=== PATIENT | male | born 1955 | race African-American/Black ===

== ENCOUNTER 2017-03-17 17:00 | Inpatient (IN) | payer MEDICAID ==
[~2017-03-17] VITALS: Ht 170.2 cm; Wt 98.4 kg
--- NOTE | ~2017-03-17 | HEMODYNAMI ---
PATIENT:YULISSA MCNAIR MEDICAL RECORD: [id number] : 59 LOCATION:D. D.2112 ADMISSION DATE: 03/17/17 Generatedon:03/18/201716:08 Patient name: YULISSA MCNAIR Patient #: [id number] SSN: : 1955 Date of study: 03/18/2017 Page: Of Hemodynamic Procedure Report Patient Data Patient Demographics Procedure consent was obtained First Name: YULISSA Gender: Male Last Name: TABBY : 1955 Middle Initial: D Age: 61 year(s) Patient #: [id number] Race: Black Additional ID: [id number] Contact details [address]: [address] [place] [address] State: [place] City: [place] Zip code: [address] Admission Admission Data Admission Date: 03/17/2017 Admission Time: 17:00 Room #: D.2112 Procedure Procedure Types Cath Procedure Diagnostic Procedure LHC LHC w/Coronaries w/Grafts PCI Procedure Coronary Stent Initial Miscellaneous Procedures Moderate Sedation up to 30 minutes Procedure Description Procedure Date Procedure Date: 03/18/2017 Procedure Start Time: 15:33 Procedure End Time: 16:07 Procedure Staff Name Function Wei Daily MD Performing Physician Rin Donohue RT Scrub Carroll Vickers RN Nurse Charly Aguirre RT Monitor Procedure Data Cath Procedure Fluoroscopy Diagnostic fluoroscopy Total fluoroscopy Time: 7.3 time: 7.3 min min Diagnostic fluoroscopy Total fluoroscopy dose: dose: 1218 mGy 1218 mGy Contrast Material Contrast Material Type Amount (ml) Isovue 300 158 Entry Location Entry Primary Successful Side Size Upsize Upsize Entry Closure Succes sful Closure Location (Fr) 1 (Fr) 2 (Fr) Remarks Device Remarks Femoral Right 5 Fr 6 Fr Exoseal artery Short Estimated blood loss: 10 ml Diagnostic catheters Device Type Used For End Catheter Placement Cordis 5Fr JL 4.0 Procedure Catheter (MP) Cordis 5Fr 3DRC Catheter Procedure (MP) Diagnostic Infinity 5Fr Procedure LCB catheter Cordis 5Fr Pigtail Procedure Catheter (MP) Diagnostic Infinity 5Fr Procedure AL 1 catheter Procedure Complications No complications Procedure Medications Medication Administration Route Dosage Oxygen NC 2 l/min Heparin Flush Bag added to field 2 bags (1000units/500ml NS) 0.9% NaCl I.V. 100 ml/hr Fentanyl I.V. 50 mcg Versed I.V. 1 mg Fentanyl I.V. 50 mcg Versed I.V. 1 mg Heparin Bolus I.V. 4000 units Integrilin (Bolus I.V. 9 ml 2mg/ml) Integrilin (Bolus wasted 1 ml 2mg/ml) Hemodynamics Rest Heart Rate: 78 (bpm) Pressure Samples Time Site Value (mmHg) Purpose Heart Use Rate(bpm) 15:35 AO 113/72(89) Snapshot 77 15:46 LV 115/-2,6 Snapshot 75 15:47 AO 116/64(85) Pullback 74 15:47 LV 115/-1,5 Pullback 74 15:58 AO 112/65(84) Snapshot 72 Gradients Valve Time Site 1 Site 2 Mean SEP/DFP Peak To Heart Use (mmHg) (sec/min) Peak Rate (mmHg) (bpm) Aortic 15:47 LV AO 0 8 0 74 115/-1,5 116/64(85) Calculations Valve P-P Mean Valve Index Valve Source Name Gradient Area Flow (cm2) Aortic 0 0 0 0 Snapshots Pre Cath Intra NCS Post Cath Vital Signs Time Heart Resp SPO2 etCO2 NIBP (mmHg) Rhythm Pain Sedation Rate (ipm) (%) (mmHg) Status Level (bpm) 15:26:41 78 20 95 15.8 182/106(152) NSR 0 (11) 10(A) , No pain 15:31:29 78 20 95 0 174/101(150) NSR 0 (11) 9(A) , No pain 15:36:10 76 16 95 0 137/80(111) NSR 0 (11) 9(A) , No pain 15:40:49 76 16 95 0 137/85(112) NSR 0 (11) 9(A) , No pain 15:45:27 74 17 94 0 131/85(108) NSR 0 (11) 9(A) , No pain 15:50:08 73 17 95 27.8 138/75(108) NSR 0 (11) 9(A) , No pain 15:54:47 73 17 94 29.3 141/85(110) NSR 0 (11) 9(A) , No pain 15:59:25 73 16 94 0 123/71(99) NSR 0 (11) 9(A) , No pain 16:04:02 74 17 95 24 136/76(107) NSR 0 (11) 9(A) , No pain Medications Time Medication Route Dose Verified Delivered Reason Notes Effectiveness by by 15:26:09 Oxygen NC 2 Wei Carroll Per physician l/min St. Benjamin Vickers RN, MD 15:26:20 Heparin Flush added 2 Wei Carroll used for Bag to bags [facility]. Benjamin Vickers RN procedure (1000units/500ml field NS) 15:26:31 0.9% NaCl I.V. 100 Wei Carroll Per physician ml/hr St. Benjamin Vickers RN, MD 15:30:50 Fentanyl I.V. 50 Wei Hodges for sedation mcg St. Benjamin Vickers RN, MD 15:30:59 Versed I.V. 1 mg Wei Pattersony for sedation St. Benjamin Vickers RN, MD 15:43:23 Fentanyl I.V. 50 Wei Pattersony for sedation mcg St. Benjamin Vickers RN, MD 15:43:28 Versed I.V. 1 mg Wei Pattersony for sedation St. Benjamin Vickers RN, MD 15:56:54 Heparin Bolus I.V. 4000 Wei Pattersony for units [facility]. Benjamin Vickers RN anticoagulation 15:57:09 Integrilin I.V. 9 ml Wei Hodges for (Bolus 2mg/ml) St. Benjamin Vickers RN anticoagulation 15:57:18 Integrilin wasted 1 ml Wei Pattersony for (Bolus 2mg/ml) [facility]. Benjamin Vickers RN anticoagulation Procedure Log Time Note 14:53:48 Time tracking: Regular hours 14:53:52 Carroll Vickers RN sent for patient. Start room use. 14:54:01 Plan of Care:Hemodynamics will remain stable., Cardiac rhythm will remain stable., Comfort level will be maintained., Respiratory function will remain adequate., Patient/ family verbilizes understanding of procedure., Procedure tolerated without complication., Recovers from procedure without complications.. 15:11:37 Patient received from PCU to CCL 1 Alert and oriented. Tansferred to table in Supine position. 15:11:39 Warm blankets applied, and iraida hugger turned on for patient comfort. 15:11:40 Correct patient and procedure confirmed by team. 15::42 Signed procedure consent form obtained from patient. 15:11:44 ECG and BP/O2 sat monitors applied to patient. 15:24:53 Vital chart was started 15:24:54 Baseline sample Acquired. 15:24:57 Rhythm: sinus rhythm 15:24:59 Full Disclosure recording started 15:25:04 H&P Date Dictated: 03/18/2017 Within 30 days and on chart.. 15:25:04 Pre-procedure instructions explained to patient. 15:25:05 Pre-op teaching completed and patient verbalized understanding. 15:25:07 Family in waiting room. 15:25:09 Patient NPO since Midnight. 15:25:10 Is the patient allergic to Iodine/contrast media? No. 15:25:25 Is patient on blood thinner?Yes 15:25:26 ACC The patient was administered the following blood thiners within the last 24 hours: ACCPlavix 15:25:28 Patient diabetic? Yes. 15:25:30 If diabetic: On Metformin? Unknown 15:25:32 Previous problem with sedation/anesthesia? No ? 15:25:33 Snore? Yes 15:25:34 Sleep apnea? No 15:25:35 Deviated septum? No 15:25:35 Opens mouth fully? Yes 15:25:36 Sticks out tongue? Yes 15:25:38 Airway obstruction? No ? 15:25:40 Dentures? No ? 15:25:43 Pre procedure: right dorsailis pedis pulse 1+ Palpable, but thready & weak; easily obliterated 15:25:44 Unable to palpate radial pulse. 15:25:45 Patient pain scale 0/10 ?. 15:25:50 IV patent on arrival in left forearm with 0.9% NaCl at [facility]. 15:25:52 Lab results completed and on chart. 15:25:55 Right groin area was prepped with chlora-prep and draped in sterile fashion 15:25:56 Alarms reviewed by R. N. 15:25:57 Sharps counted by scrub and verified by R.N. 15:25:58 --------ALL STOP TIME OUT------ 15::59 Final Timeout: patient, procedure, and site verified with staff and physician. All members of the team are in agreement. 15:26:02 Right groin site verified by team. 15:: Physical assessment completed. ASA score P 2 - A patient with mild systemic disease as per Wei Daily MD. 15::09 Oxygen 2 l/min NC was administered by Carroll Vickers RN; Per physician; 15::11 Sedation plan: IV Moderate Sedation Versed, Fentanyl 15:26:20 Heparin Flush Bag (1000units/500ml NS) 2 bags added to field was administered by Carroll Vickers RN; used for procedure; 15::31 0.9% NaCl 100 ml/hr I.V. was administered by Carroll Vickers RN; Per physician; 15:30:23 Use device set Femoral Dx 15:30:27 Tegaderm 4 x 4 opened to sterile field. 15:30:28 Acist Hand Control opened to sterile field. 15:30:28 Acist Manifold opened to sterile field. 15:30:29 Acist Syringe opened to sterile field. 15:30:30 Bag Decanter opened to sterile field. 15:30:30 Medline Cath Pack opened to sterile field. 15:30:30 Terumo 5Fr [place] Sheath opened to sterile field. 15:30:31 St Yg 260cm J .035 wire opened to sterile field. 15:30:33 Diagnostic Infinity 5Fr Multipack catheter opened to sterile field. 15:30:50 Fentanyl 50 mcg I.V. was administered by Carroll Vickers RN; for sedation; 15::59 Versed 1 mg I.V. was administered by Carroll Vickers RN; for sedation; 15:33:07 Procedure started. 15:33:14 Local anesthetic to right femoral artery with Lidocaine 2% by Wei Daily MD.INITIAL ACCESS ONLY 15:35:00 A 5 Fr sheath was inserted into the Right Femoral artery 15:35:13 A Cordis 5Fr JL 4.0 Catheter (MP) was advanced over the wire and used for Procedure. 15:35:19 LCA angiography performed. 15:36:31 Catheter removed. 15:36:36 A Cordis 5Fr 3DRC Catheter (MP) was advanced over the wire and used for Procedure. 15:36:38 Zero performed for pressure channel P1 15:38:24 RCA angiography performed. 15:40:38 SINGH to LAD angiography performed. 15:40:39 SINGH is a skip to DIAG as well. 15:41:06 SVG to Circ angiography performed. 15:41:23 Catheter removed. 15:41:33 A Diagnostic Infinity 5Fr LCB catheter was advanced over the wire and used for Procedure. 15:43:23 Fentanyl 50 mcg I.V. was administered by Carroll Vickers RN; for sedation; 15:43:28 Versed 1 mg I.V. was administered by Carroll Vickers RN; for sedation; 15:45:58 Catheter removed. unable to cannulate vessel. 15:46:31 A Cordis 5Fr Pigtail Catheter (MP) was advanced over the wire and used for Procedure. 15:47:20 LV hemodynamics recorded. 15:49:21 Aortic Root visualized 15:49:24 Injector settings: Ml/sec: 15, Volume: 30, 15:49:31 Catheter removed. 15:50:59 A Diagnostic Infinity 5Fr AL 1 catheter was advanced over the wire and used for Procedure. 15:52:25 SVG to OM angiography performed. 15:52:34 Catheter removed. 15:53:35 Terumo 6Fr [place] Sheath opened to sterile field. 15:53:36 Perfectore BasixCompak Inflation Kit opened to sterile field. 15:53:36 Scott Whisper J 300cm 0.014 guide wire opened to sterile field. 15:53:36 Ummitechtronic Launcher 6Fr HS I guide catheter opened to sterile field. 15:55:08 Sheath upsized to a 6 Fr Short. 15:55:18 Study PCI Site: [place] dRCA has 80% stenosis. 15:55:21 ACC Pre-intervention TANYA Flow is 3. 15:55:27 6 Fr HS 1 guide catheter was inserted over the wire 15:56:54 Heparin Bolus 4000 units I.V. was administered by Carroll Vickers RN; for anticoagulation; 15:57:09 Integrilin (Bolus 2mg/ml) 9 ml I.V. was administered by Carroll Vickers RN; for anticoagulation; 15:57:18 Integrilin (Bolus 2mg/ml) 1 ml wasted was administered by Carroll Vickers RN; for anticoagulation; 15:57:18 Whisper wire advanced. 15:59:22 Wire advanced across lesion. 15:59:59 Inflation Number: 1 A Medtronic Integrity 3.5 X 15 stent was prepped and advanced across the Dist RCA. The stent was deployed at 14 SONIA for 0:45 (min:sec). 16:00:16 ACC Post-intervention TANYA Flow is 3. 16:00:18 Stent catheter was removed intact over wire. 16:00:18 Wire removed. 16:00:19 Guide catheter removed. 16:00:43 Sheath removed intact; hemostasis achieved with Exoseal to the Right Femoral artery. 16:00:45 Procedure ended.(Physican Out) 16:01:00 Cordis 6Fr Exoseal opened to sterile field. 16:01:28 Fluoroscopy time 07.30 minutes. 16:01:32 Fluoroscopy dose: 1218 mGy 16:01:32 Flurop Dose total: 1218 16:01:37 Contrast amount:Isovue 300 158ml. 16:01:39 Sharps counted by scrub and verified by R.N. 16:01:41 Insertion/operative site no bleeding no hematoma. 16:01:43 Post Procedure Pulses reassessed and unchanged 16:01:46 Post-procedure physical assessment completed. ASA score P 2 - A patient with mild systemic disease as per Wei Daily MD. 16:01:49 Post procedure rhythm: unchanged. 16:01:52 Estimated blood loss: 10 ml 16:01:53 Post procedure instruction explained to patient.Patient verbalizes understanding. 16:01:54 Patient needs reinforcement of post procedure teaching. 16:02:10 Procedure type changed to Cath procedure, Diagnostic procedure, LHC, LHC w/Coronaries w/Grafts, PCI procedure, Coronary Stent Initial, Miscellaneous Procedures, Moderate Sedation up to 30 minutes 16:02:13 Procedure and supply charges have been captured, reviewed, submitted and are correct. 16:02:16 Procedure Complication : No complications 16:03:37 Cook 18G 7cm Percutaneous Entry needle opened to sterile field. 16:07:13 Vital chart was stopped 16:07:14 See physician's report for complete and final results. 16:07:18 Report given to PCU. 16:07:23 Patient transfered to PCU with Bed. 16:07:25 Procedure ended. 16:07:25 Full Disclosure recording stopped 16:08:00 End room use (Document Last) Intervention Summary Intervention Notes Time ActionType Lesion and Equipment Action# Pressure Duration Attributes Used 15:59:59 Place stent Dist RCA Medtronic 1 14 00:45 Integrity 3.5 X 15 stent Device Usage Item Name Manufacture Quantity Catalog Hospital Part Current Minimal Lot# / Number Charge Number Stock Stock Serial# Code Tegadenorberto 4 x 3M 1 [id number] 737867 400373 5 4 Acist Hand Acist 1 43257 602173 691028 923894 5 Control Medical Systems Inc Acist Acist 1 36196 004322 057261 402249 5 Manifold Medical Systems Inc Acist Acist 1 83539 040488 129371 541380 20 Syringe Medical Systems Inc Bag Decanter Microtek 1 2002S 506947 64943 598022 5 Medical Inc. Medline Cath Cardinal 1 [id number] 668249 31707 284629 5 Pack Health Terumo 5Fr Terumo 1 [id number] 028828 957916 738616 [address] Yg 1 021130 640167 789343 191332 30 260cm J .035 wire Diagnostic Cardinal 1 [id number] 518618 25504 548151 30 Infinity 5Fr Health Multipack catheter Cordis 5Fr Cardinal 1 895292 5 JL 4.0 Health Catheter (MP) Cordis 5Fr Cardinal 1 038613 5 3DRC Health Catheter (MP) Diagnostic Cardinal 1 [id number] 030786 189413 769943 5 Infinity 5Fr Health LCB catheter Cordis 5Fr Cardinal 1 211491 5 Pigtail Health Catheter (MP) Diagnostic Cardinal 1 [id number] 676737 733137 760921 15 Infinity 5Fr Health AL 1 catheter Terumo 6Fr Terumo 1 EEK421 359862 128822 600018 40 [place] Sheath Merit Merit 1 IK6979 568097 779468 223991 15 BasixCompak Medical Inflation Kit Scott Scott 1 [id number] 661434 236260 448969 5 Whisper J Vascular 300cm 0.014 guide wire Medtronic Medtronic 1 [id number] 376411 64425 432458 1 Launcher 6Fr HS I guide catheter Medtronic Medtronic 1 [id number] 621017 268261 0 [id number] Integrity 3.5 X 15 stent Cordis 6Fr Cardinal 1 EX600 942074 131448 285556 10 On[employer] 18G 7cm Win the Planet [facility] 1 [id number] 750046 11411 512758 5 Percutaneous Entry needle Signature Audit [place] Stage Time Signature Unsigned Intra-Procedure 03/18/2017 Charly Aguirre 4:08:17 PM RT(R) Signatures Monitor : Charly Aguirre RT Signature : Date : Time : [place] [id number] [facility] [place] [address]
--- NOTE | 2017-03-17 17:00 | NUR ---
PT RECEIVED TO ROOM 2111 VIA STRETCHER. ORIENTED PT TO ROOM AND CALL LIGHT. PT ASSESSED AT THIS TIME, DENIES ANY CHEST PAIN. RESP EVEN AND UNLABORED, 20G IV NOTED TO RT WRIST. PT A/O X4, DENIES ANY NEEDS AT THIS TIME. WILL START PLAN OF CARE.
[2017-03-17 17:55] VITALS: BP 173/95; BMI 34.0
[2017-03-17] MEDS ORDERED: NORVASC5 MG PO (18:03)
[2017-03-17] MEDS ORDERED: ASPIRIN325 MG PO (18:04)
[2017-03-17] MEDS ORDERED: BAYER CHEWABLE81 MG PO (18:04)
[2017-03-17] MEDS ORDERED: LIPITOR40 MG PO (18:05)
[2017-03-17] MEDS ORDERED: PLAVIX75 MG PO (18:05)
[2017-03-17] MEDS ORDERED: COREG25 MG PO (18:05)
[2017-03-17] MEDS ORDERED: CYCLOBENZAPRINE10 MG PO (18:06)
[2017-03-17] MEDS ORDERED: GABAPENTIN100 MG PO (18:06)
[2017-03-17] MEDS ORDERED: GLUCOTROL 5 MG T5 MG PO (18:07)
[2017-03-17] MEDS ORDERED: HYDRALAZINE HCL50 MG PO (18:08)
[2017-03-17] MEDS ORDERED: GLIMEPIRIDE1 MG PO (18:09)
[2017-03-17] MEDS ORDERED: METOLAZONE5 MG PO (18:11)
[2017-03-17] MEDS ORDERED: JANTOVEN7.5 MG PO ×2 (18:12→18:14)
[2017-03-17] MEDS ORDERED: K-DUR20 MEQ PO (18:16)
[2017-03-17] MEDS ORDERED: TORSEMIDE20 MG PO (18:17)
[2017-03-17 18:21] LABS: BASOPHILS 0.1 % (0-2); EOSINOPHILS 2.3 % (0-7); HEMATOCRIT 44.1 % (42.0-54.0); HEMOGLOBIN 14.6 g/dL (13.5-17.5); IMMATURE GRANULOCYTES 0.1 % (0-5); LYMPHOCYTES 17.6 % (15-50); MCHC 33.1 g/dL (31.0-37.0); MCV 81.7 fL (80.0-100.0); MEAN PLATELET VOLUME 9.3 fL (7.4-10.4); NEUTROPHILS 70.9 % (40-80); PLATELET COUNT 195 10x3/uL (130-400); RDW 15.7 % (11.5-14.5)
--- NOTE | 2017-03-17 19:28 | NUR ---
PT IN BED WITH HOB UP FOR COMFORT. WATCHING TV. FAMILY AT BEDSIDE. ALERT & ORIENTED. NO O2. RIGHT WRIST SL. TELEMETRY. URINAL. SOFT SPOKEN. LEFT SIDE WEAKNESS. BED IN LOWEST POSITION AND CALL LIGHT WITHIN REACH.
[2017-03-17 19:53] LABS: ALBUMIN 3.2 g/dL (3.4-5.0); ALKALINE PHOSPHATASE 182 U/L (46-116); ALT (SGPT) 36 U/L (10-68); BILIRUBIN - DIRECT 0.16 mg/dL (0.00-0.30); BILIRUBIN - INDIRECT 0.24 mg/dL (0.00-1.00); CALC OSMOLALITY 304 mosm/kg (275-300); CALCIUM 9.7 mg/dL (8.5-10.1); CARBON DIOXIDE 34.3 mmol/L (21.0-32.0); CHLORIDE - SERUM 92 mmol/L (98-107); CREATINE KINASE 187 UL (21-232); CREATININE - SERUM 3.2 mg/dL (0.6-1.3); GLUCOSE 291 mg/dL (74-106); MAGNESIUM - SERUM 1.8 mg/dL (1.8-2.4); POTASSIUM - SERUM 3.1 mmol/L (3.5-5.1); PROTEIN - SERUM 7.8 g/dL (6.4-8.2); SODIUM 137 mmol/L (136-145); TROPONIN-I 0.049 ng/mL (0.000-0.060); UREA NITROGEN 68 mg/dL (7-18); eGFR NON AFRICAN AMERICAN 21 mL/min (90-120)
[2017-03-17 21:02] VITALS: BP 139/85
--- NOTE | 2017-03-17 23:53 | NUR ---
EKG DONE ORDERED. PLACED IN CHART.
[2017-03-18 00:20] LABS: CKMB 1.7 U/L (0.0-3.6); CREATINE KINASE 176 UL (21-232); TROPONIN-I 0.057 ng/mL (0.000-0.060)
[2017-03-18 00:30] VITALS: BP 163/74
--- NOTE | 2017-03-18 05:25 | NUR ---
LEAD FORMER REPORTED TO ME PT'S BP IS 198/88 AND IS FEELING NAUSEATED. PAGED PROFESSIONAL DRIVER.
--- NOTE | 2017-03-18 05:32 | NUR ---
ZOFRAN GIVEN FOR PT'S NAUSEA.
--- NOTE | 2017-03-18 05:39 | NUR ---
RIGHT WRIST SL INFILTRATED. RIGHT FA 20 GAUGE IV ON X1 ATTEMPT BY JEAN-PAUL LOW.
[2017-03-18 06:03] VITALS: BP 192/88
--- NOTE | 2017-03-18 06:05 | NUR ---
HAVE NOT GOTTEN A CALL FROM MEDICAL COLLECTIONS SPECIALIST.
[2017-03-18 07:00] LABS: INR 1.27 (0.85-1.17); PROTIME 15.8 SECONDS (11.6-15.0)
[2017-03-18 07:23] LABS: CALC OSMOLALITY 300 mosm/kg (275-300); CALCIUM 9.9 mg/dL (8.5-10.1); CARBON DIOXIDE 31.1 mmol/L (21.0-32.0); CHLORIDE - SERUM 93 mmol/L (98-107); CKMB 1.5 U/L (0.0-3.6); CREATINE KINASE 180 UL (21-232); CREATININE - SERUM 3.2 mg/dL (0.6-1.3); SODIUM 132 mmol/L (136-145); TROPONIN-I 0.051 ng/mL (0.000-0.060); UREA NITROGEN 63 mg/dL (7-18); eGFR NON AFRICAN AMERICAN 21 mL/min (90-120)
[2017-03-18 07:45] LABS: GLUCOSE 427 mg/dL (74-106)
[2017-03-18 07:51] LABS: BASOPHILS 0 % (0-2); EOSINOPHILS 1.8 % (0-7); IMMATURE GRANULOCYTES 0.3 % (0-5); LYMPHOCYTES 15.2 % (15-50); MCH 27.1 pg (26.0-34.0); MCHC 33.3 g/dL (31.0-37.0); MCV 81.2 fL (80.0-100.0); MEAN PLATELET VOLUME 9.6 fL (7.4-10.4); MONOCYTES 10.2 % (2-11); NEUTROPHILS 72.5 % (40-80); PLATELET COUNT 194 10x3/uL (130-400); RBC 5.17 10x6/uL (4.20-6.10); RDW 15.4 % (11.5-14.5); WBC 6.6 10x3/uL (4.8-10.8)
[2017-03-18 08:07] VITALS: BP 194/97
[2017-03-18 09:48] VITALS: Ht 170.2 cm; Wt 98.4 kg
--- NOTE | 2017-03-18 13:05 | CN ---
PATIENT NAME:YULISSA MCNAIR MEDICAL RECORD: [id number] : 59 LOCATION:[facility].2 ADMIT DATE: 03/17/17 ACCOUNT: [id number] CONSULTING PHYSICIAN: FLETCHER WELSH MD REFERRING PHYSICIAN: GUADALUPE SALAMANCA MD DATE OF CONSULTATION: 03/18/2017 HISTORY OF PRESENT ILLNESS: A 61-year-old gentleman with no known history of coronary artery disease with a history of chronic renal insufficiency, history of hypertension, reports about 2-week history of intermittent chest tightness with exertion progressing for probably roughly over the past 2 weeks. He also had some fluid type symptomatology, orthopnea, PND consistent with volume overload, multiple risk factors for volume overload. We are asked to see him concerning his cardiovascular status. PAST MEDICAL HISTORY: Includes: 1. History of hypertension. 2. Chronic renal insufficiency. 3. Diabetes mellitus. 4. Dyslipidemia. MEDICATIONS: Include Amaryl 1 mg p.o. daily, glipizide 5 b.i.d., furosemide 40 b.i.d., metolazone 5 daily, gabapentin 100 t.i.d., aspirin 81 daily, hydralazine 50 t.i.d., Coreg 25 b.i.d., atorvastatin 40 daily, amlodipine 5 daily, and Plavix 75 daily. ALLERGIES: None known. SOCIAL HISTORY: He lives in [place]. He is a nonsmoker. He is able to take care of his ADLs. REVIEW OF SYSTEMS: The patient reports easy bruising but reports no swollen glands. The patient reports no fever, no night sweats, no significant weight gain, no significant weight loss. No significant exercise tolerance. The patient reports no dry eyes, no irritation, no vision change. Patient reports no difficulty hearing and no ear pain. Patient reports no frequent nose bleeds or nose and sinus problems. Patient reports on arm pain on exertion. No shortness of breath while lying down. No history of heart murmur. Patient reports no cough, no wheezing or coughing up blood. Patient reports no abdominal pain, no vomiting. Normal appetite. No diarrhea and not vomiting blood. No nausea and no constipation. Patient reports no incontinence. No difficulty urinating. No hematuria. No increased frequency. Patient reports no muscle aches. No weakness, no arthralgias, no back pain. No swelling of the extremities. Patient reports no abnormal mole, no jaundice, no rashes. Reports no loss of consciousness. No weakness and no numbness. No seizures, dizziness, or headaches. The patient reports no depression, no sleep disturbance, feeling safe in a relationship and no alcohol abuse. Patient reports on fatigue. Reports no runny nose or sinus pressure. No itching, no hives, and no frequent sneezing. PHYSICAL EXAMINATION: GENERAL: Pleasant gentleman in no acute distress, somewhat poor historian. VITAL SIGNS: Blood pressure 198/88 and pulse 80 and regular. HEENT: Normocephalic, atraumatic. NECK: No JVD or bruit. CONSULT REPORT [id number] YULISSA MCNAIR HEART: Regular. S4 gallop is noted. II/ systolic ejection murmur. LUNGS: Diminished breath sounds. ABDOMEN: Soft, nontender. EXTREMITIES: Pulse 2+. There is 1+ edema. NEUROLOGIC: Grossly intact. DIAGNOSTIC DATA: ECG consistent with LVH. IMPRESSION: Progressive angina, renal insufficiency, and diabetes mellitus. PLAN: For diagnostic angiography, intervention based on the above. TRANSINT:[id number] Voice Confirmation ID: [id number] DOCUMENT ID: [id number] FLETCHER WELSH MD at 1305 CC: [id number] DICTATION DATE: 03/18/17740 ARMAMENT MECHANIC: 03/18/17 1026 ADM IN [place] [id number] [place] [id number]
[2017-03-18 13:38] VITALS: BP 180/70
[2017-03-18 13:39] LABS: ANION GAP 11.3 mmol/L (8-16); CALCIUM 9.9 mg/dL (8.5-10.1); POTASSIUM - SERUM 3.3 mmol/L (3.5-5.1)
--- NOTE | 2017-03-18 16:30 | NUR ---
ARRIVE BACK TO ROOM VIA BED FROM DATA CENTER MANAGER. DROWSY, AROUSES EASILY WHEN SPOKEN TO. STENT TO RCA. RT GROIN DRESSING CLEAN DRY INTACT. PULSES PALPABLE BILATERALLY. FREE FROM BLEEDING. NO HEMATOMA. BP-144/67, P-72bpm SINUS RHTHYM ON TELEMETRY, O2-100% 2L NC. REMAIN FLAT FOR 4HOURS. BED LOCKED AND LOW. CALL LIGHT IN REACH. TWO SIDERAILS UP.
[2017-03-18 16:37] VITALS: BP 144/67
--- NOTE | 2017-03-18 19:30 | NUR ---
ASSESSED PTS CATH ACCESS IN R GROIN. DRSG INTACT. SCANT AMOUNT DRIED BLOOD. NO HEMATOMA FORMATION NOTED. PT STATES THERE IS NO PAIN OR DISCOMFORT. WILL CTM.
--- NOTE | 2017-03-18 19:57 | NUR ---
PT IN BED RESTING QUIETLY. BREATHING EVEN AND UNLABORED. BED RAILS UP X2. BED IN LOW POSITION, CALL LIGHT WITHIN REACH.
[2017-03-18 21:53] VITALS: BP 172/90
--- NOTE | 2017-03-18 23:30 | NUR ---
ASSESSED PTS RT GROIN CATHETER ACCESS. DRSG INTACT. SAME AMOUNT OF SCANT DRIED BLOOD NOTED. NO HEMATOMA FORMATION. PT STATES THERE IS NOT ANY PAIN OR DISCOMFORT. WILL CTM.
[2017-03-19] VITALS (8 sets, daily range): BP systolic 90–198; BP diastolic 47–101
--- NOTE | 2017-03-19 01:19 | NUR ---
PTS BP 198/107. C/O NAUSEA. PAGED SILO ERECTOR PHYSICIAN. AWAITING RESPONSE.
--- NOTE | 2017-03-19 01:23 | NUR ---
RCVD CALL BACK FROM SIDNEY MOORE. SHE STATED TO ORDER CLONIDINE 0.1MG Q4HRS PRN FOR BP. AND PO ZOFRAN 4 MG Q6HRS PRN.
[2017-03-19 05:06] LABS: BASOPHILS 0 % (0-2); EOSINOPHILS 0.7 % (0-7); HEMATOCRIT 45.2 % (42.0-54.0); HEMOGLOBIN 14.8 g/dL (13.5-17.5); IMMATURE GRANULOCYTES 0.3 % (0-5); LYMPHOCYTES 10.4 % (15-50); MCH 27.1 pg (26.0-34.0); MCHC 32.7 g/dL (31.0-37.0); MCV 82.6 fL (80.0-100.0); MEAN PLATELET VOLUME 9.3 fL (7.4-10.4); MONOCYTES 9.3 % (2-11); NEUTROPHILS 79.3 % (40-80); PLATELET COUNT 213 10x3/uL (130-400); RBC 5.47 10x6/uL (4.20-6.10); RDW 15.7 % (11.5-14.5); WBC 7.7 10x3/uL (4.8-10.8)
[2017-03-19 05:17] LABS: INR 1.19 (0.85-1.17)
[2017-03-19 05:51] LABS: ALBUMIN 2.8 g/dL (3.4-5.0); ANION GAP 11.3 mmol/L (8-16); BILIRUBIN - TOTAL 0.5 mg/dL (0.2-1.3); CALCIUM 9.8 mg/dL (8.5-10.1); CARBON DIOXIDE 30.8 mmol/L (21.0-32.0); CREATININE - SERUM 2.6 mg/dL (0.6-1.3); MAGNESIUM - SERUM 2.1 mg/dL (1.8-2.4); PHOSPHOROUS 2.7 mg/dL (2.5-4.9); POTASSIUM - SERUM 3.1 mmol/L (3.5-5.1)
[2017-03-19 05:55] LABS: TROPONIN-I 0.111 ng/mL (0.000-0.060)
--- NOTE | 2017-03-19 06:12 | NUR ---
RCVD CALL FROM LAB ABOUT TROPONIN BEING 0.111. CARDIOLOGY ALREADY CONSULTED. WILL PASS ON IN REPORT. POTASSIUM LEVEL ALSO 3.1. PT ON ELECTROLYTE PROTOCOL. GIVING 40 MEQ PO KCL. PUT PT ON NPO ANTICIPATING POSSIBLE CATH.
--- NOTE | 2017-03-19 11:00 | NUR ---
ALERT AND ORIENTED X4. ASSIST TO RESTROOM AND BACK TO BED. INITIATE NS + 20KCL @ 75mL/HR THROUGH RT FA IV ORDERED. NOTIFY TERESA RENAL CLINICAL SCIENCE CONSULTANT AND OF TROPONIN ELEVATION FROM 0.[address] ORDERED FOR NAUSEA AND VOMITING. DENIES ANY NEEDS. BED LOCKED AND LOW. CALL LIGHT IN REACH. CONTINUE TO MONITOR AND TREAT HYPERTENSION. TWO SIDERAILS UP. SINUS RHTHYM 70bpm ON TELEMETRY.
--- NOTE | 2017-03-19 19:17 | NUR ---
PT UP TO RESTROOM X1 ASSIST. PT WEAK ON LEFT SIDE. PT AMBULATE TO RESTROOM WITH MINIMAL ASSIST. PT REPOSITIONED IN BED. CALL LIGHT IN REACH. BED LOW. PT DENIES ANY NEEDS. NO S/S OF DISTRESS. WILL CPOC
--- NOTE | 2017-03-20 01:40 | NUR ---
PT ASLEEP LAYING ON RIGHT SIDE. NS WITH 20 MEQ POTASSIUM INFUSING TO RIGHT ARM AT 75. PT HAS NO S/S OF DISTRESS. BED LOW AND CALL LIGHT IN REACH. WILL CPOC
[2017-03-20 02:45] VITALS: BP 190/102
[2017-03-20 04:42] VITALS: BP 192/100
--- NOTE | 2017-03-20 05:56 | NUR ---
PT RESTING IN BED. LAB IN ROOM DRAWING BLOOD. PT HAS NS 20MEQ POTASSIUM INFUSING TO RIGHT FOREARM. FSBS IS 274. WILL COVER BLOOD SUGAR AND GIVE PT A SNACK. PT DENIES ANY NEEDS. NO S/S OF DISTRESS. WILL CPOC
[2017-03-20 06:32] LABS: BASOPHILS 0 % (0-2); EOSINOPHILS 0.8 % (0-7); HEMOGLOBIN 14.3 g/dL (13.5-17.5); IMMATURE GRANULOCYTES 0.2 % (0-5); LYMPHOCYTES 11.5 % (15-50); MCH 27.3 pg (26.0-34.0); MCHC 33.3 g/dL (31.0-37.0); MCV 82.1 fL (80.0-100.0); MEAN PLATELET VOLUME 9.2 fL (7.4-10.4); MONOCYTES 6.3 % (2-11); NEUTROPHILS 81.2 % (40-80); PLATELET COUNT 203 10x3/uL (130-400); RBC 5.24 10x6/uL (4.20-6.10); RDW 15.9 % (11.5-14.5); WBC 8.5 10x3/uL (4.8-10.8)
[2017-03-20 06:56] LABS: ANION GAP 14.5 mmol/L (8-16); CARBON DIOXIDE 26.6 mmol/L (21.0-32.0); CREATININE - SERUM 3.2 mg/dL (0.6-1.3)
[2017-03-20 07:00] LABS: POTASSIUM - SERUM 4.1 mmol/L (3.5-5.1)
--- NOTE | 2017-03-20 07:37 | NUR ---
AM ROUNDING DONE WITH PATIENT SITTING AT 30 DEGREE WITH HOB. WAS GIVEN PHENERGAN EARILER IN SHIFT FOR NAUSEA, DENIES NEEDS AT PRESENT TIME. ON HEART MONITOR SHOWING SR, HR 91. ON ROOM AIR. RIGHT INNER FA SEEN WITH 1/2 NS W 20 K INFUSING AT 75 CC/HR WITHOUT PROBLEMS. USES URINAL TO VOID. PATIENT REPORTS THAT ENTIRE LEFT SIDE IS WEAK FROM PREVIOUS HISTORY OF STROKE. ENCOURAGED PATIENT TO USE CALL LIGHT FOR ALL NEEDS. WILL CONTINUE TO MONITOR.
--- NOTE | 2017-03-20 07:39 | NUR ---
RIGHT GROIN SEEN WITH OPSITE AND CLEAN 2 X 2 DRESSING. PPP AND STRONG
--- NOTE | 2017-03-20 09:26 | NUR ---
0857-COMPLAINTS OF NAUSEA STILL. ZOFRAN 4 MG GIVEN SLOW IVP ORDERED.
[2017-03-20 09:45] VITALS: BP 144/88
[2017-03-20 12:30] VITALS: BP 167/88
--- NOTE | 2017-03-20 13:39 | NUR ---
RESTING WITH EYES CLOSED, RESP ARE EVEN AND NON LABORED. WILL CONTINUE TO MONITOR.
--- NOTE | 2017-03-20 14:31 | NUR ---
CALLED DR SALAMANCA OFFICE AND SPOKE WITH FRANCOIS R/T CLARIFICATION OF COUMADIN DOSE FOR TODAY. SHE STATES THAT SHE WILL HAVE TO HAVE THE NURSE PRACTINONER TO CALL ME BACK WITH CLARIFICATION.
--- NOTE | 2017-03-20 14:50 | NUR ---
ELVIN MACIEL APN TO CALL BACK AND STATES THAT ITS OKAY TO GIVE WHAT IS ORDERED.
[2017-03-20 16:51] VITALS: BP 140/76
--- NOTE | 2017-03-20 19:19 | NUR ---
PT ASLEEP, RESP EVEN AND UNLABORED. BEDSIDE REPORT GIVEN AT DOOR. NAME AND DATE PLACED ON BOARD. PT HAS NO S/S OF DISTRESS. BED LOW AND CALL LIGHT IN REACH. WILL CPOC
[2017-03-20 20:00] VITALS: BP 120/65
--- NOTE | 2017-03-20 21:37 | NUR ---
PT IN BED. HOB IS 40. DENIES ANY NAUSEA AT THIS TIME. PT HAS A FSBS OF 271 6 UNITS GIVEN. PT GIVEN A SNACK. DENIES ANY NEEDS. NO S/S OF DISTRESS. WILL CPOC
[2017-03-21] VITALS: BP 140/70
[2017-03-21 04:00] VITALS: BP 152/74
--- NOTE | 2017-03-21 04:49 | NUR ---
PT UP TO RESTROOM X1 ASSIST OUT OF BED. WALKING TO BATHROOM STANDBYE ASSIST. PT PULLED LIGHT WHEN DONE. PT BACK IN BED. 1/2NS WITH 20 MEQ INFUSING AT 30 TO RIGHT FOREARM. PT DENIES ANY NEEDS. NO S/S OF DISTRESS. WILL CPOC
[2017-03-21 05:31] LABS: BASOPHILS 0 % (0-2); EOSINOPHILS 1.3 % (0-7); HEMATOCRIT 42.6 % (42.0-54.0); HEMOGLOBIN 13.9 g/dL (13.5-17.5); IMMATURE GRANULOCYTES 0.3 % (0-5); LYMPHOCYTES 13.7 % (15-50); MCHC 32.6 g/dL (31.0-37.0); MCV 82.7 fL (80.0-100.0); MEAN PLATELET VOLUME 9.2 fL (7.4-10.4); MONOCYTES 9.6 % (2-11); NEUTROPHILS 75.1 % (40-80); PLATELET COUNT 195 10x3/uL (130-400); RBC 5.15 10x6/uL (4.20-6.10); RDW 15.8 % (11.5-14.5)
[2017-03-21 05:34] LABS: INR 1.43 (0.85-1.17); PROTIME 17.3 SECONDS (11.6-15.0)
[2017-03-21 05:40] LABS: WBC 6.3 10x3/uL (4.8-10.8)
[2017-03-21 05:46] LABS: ALBUMIN 2.7 g/dL (3.4-5.0); ANION GAP 14.7 mmol/L (8-16); BILIRUBIN - DIRECT 0.11 mg/dL (0.00-0.30); BILIRUBIN - INDIRECT 0.22 mg/dL (0.00-1.00); BILIRUBIN - TOTAL 0.33 mg/dL (0.2-1.3); CALCIUM 8.9 mg/dL (8.5-10.1); CARBON DIOXIDE 24.6 mmol/L (21.0-32.0); CREATININE - SERUM 3.7 mg/dL (0.6-1.3); POTASSIUM - SERUM 3.3 mmol/L (3.5-5.1); PROTEIN - SERUM 7.3 g/dL (6.4-8.2)
--- NOTE | 2017-03-21 07:13 | NUR ---
PT POTASSIUM IS 3.3 WITH AM LABS. 40 MEQ OF POTASSIUM GIVEN .WILL CHECK IN 4 HOURS ORDERED.
--- NOTE | 2017-03-21 07:26 | NUR ---
ROUNDING DONE WITH PATIENT ON EP, K+ IS 3.3. NIGHT NURSE IS COVERING WITH SUPPLEMENT. RIGHT INNER FA WITH 1/2 NS W 20 K+ INFUSING AT 30 CC/HR. ON ROOM AIR. LEFT ARM AND LEFT LEG SEEN WITH 2+ EDEMA, HX OF LEFT SIDED CVA. RIGHT GROIN DRESSING SEEN OF OPSITE AND 2 X 2 . ON HEART MONITOR SHOWING SR, HR 99. PATIENT REPORTS THAT HE HAS A DEFIB. WILL MONITOR.
[2017-03-21 08:18] VITALS: BP 177/101
--- NOTE | 2017-03-21 12:15 | NUR ---
Nutrition follow-up: Clear liquids started due to pt with continued nausea, vomiting at this time. Labs reviewed Wt: 216# +BM Pt will need nutrition support if diet unable to advance past clear liquids within [address] RDN following.
[2017-03-21 12:30] VITALS: BP 137/76
[2017-03-21 13:04] LABS: ANION GAP 12.3 mmol/L (8-16); CALCIUM 8.8 mg/dL (8.5-10.1); CREATININE - SERUM 3.4 mg/dL (0.6-1.3)
[2017-03-21 13:05] LABS: POTASSIUM - SERUM 4.3 mmol/L (3.5-5.1)
--- NOTE | 2017-03-21 14:29 | NUR ---
DENIES NEEDS, WANTING SOMETHING TO EAT. I ASKED JOSE MARIA SALGADO APN WHILE SHE WAS HERE AND SHE STATES THAT SHE HAS TO GO TO CLINIC AND DR NOGUERA WILL SEE PATIENT. CONTINUE TO FOLLOW.
--- NOTE | 2017-03-21 19:26 | NUR ---
PT RESTING IN BED. 1/2 NS WITH 20 MEQ KCL INFUSING TO RIGHT FOREARM. PT DENIES ANY NAUSEA. PT SITTING UP. HOB 40 WATCHING TV. BED SIDE REPORT RECEIVED. PT DENIES ANY NEEDS AT THIS TIME. NO S/S OF DISTRESS. WILL CPOC
[2017-03-21 20:00] VITALS: BP 148/58
--- NOTE | 2017-03-21 23:19 | NUR ---
PT BLOOD SUGAR IS 229. 4 UNITS OF INSULIN GIVEN AND PT EATING GRAMCRACKERS AND PNT BUTTER A SNACK. PT SITTING WATCHING TV. DENIES ANY NEEDS. NO S/S OF DISTRESS. 1/2 NS 20 MEQ KCL @ 30. TO RIGHT FOREARM. BED LOW AND CALL LIGHT IN REACH. WILL CPOC
[2017-03-22 06:03] LABS: BASOPHILS 0 % (0-2); EOSINOPHILS 2.1 % (0-7); HEMATOCRIT 39.6 % (42.0-54.0); HEMOGLOBIN 12.9 g/dL (13.5-17.5); IMMATURE GRANULOCYTES 0.2 % (0-5); MCH 26.8 pg (26.0-34.0); MCHC 32.6 g/dL (31.0-37.0); MCV 82.2 fL (80.0-100.0); MONOCYTES 10.9 % (2-11); NEUTROPHILS 66.8 % (40-80); PLATELET COUNT 177 10x3/uL (130-400); RBC 4.82 10x6/uL (4.20-6.10); WBC 4.8 10x3/uL (4.8-10.8)
[2017-03-22 06:29] LABS: ANION GAP 11.8 mmol/L (8-16); CALCIUM 8.7 mg/dL (8.5-10.1); CARBON DIOXIDE 25.7 mmol/L (21.0-32.0); CREATININE - SERUM 3.4 mg/dL (0.6-1.3)
[2017-03-22 06:36] LABS: POTASSIUM - SERUM 3.5 mmol/L (3.5-5.1)
--- NOTE | 2017-03-22 07:30 | NUR ---
REPORT RECEIVED. PT RESTING QUIETLY, REPORTS FEELING "PRETTY GOOD TODAY." PT ASKED ME IF HE WOULD BE D/C TODAY. I TOLD HIM I HAVE NO NEW ORDERS YET, BUT I WOULD KEEP HIM INFORMED. RR EVEN AND UNLABORED, WILL CTM.
[2017-03-22 08:32] VITALS: BP 149/79
--- NOTE | 2017-03-22 11:00 | NUR ---
PT DISCHARGED. D/C INSTRUCTIONS PROVIDED, PT VERBALIZED UNDERSTANDING. PAPER WORK SIGNED. PET CARE TECHNICIAN REMOVED TELE AND RETURNED TO [employer]SPORT[employer]. IV CATHETER REMOVED AND RETURNED TO [employer]SP[employer]. PT DENIES FURTHER QUESTIONS AND NEEDS REGARDING D/C INSTRUCTIONS. WILL CALL WHEN READY TO LEAVE VIA WHEELCHAIR. HE WILL BE GOING HOME WITH FAMILY MEMBER IN PERSONAL VEHICHLE.
--- NOTE | 2017-03-24 13:30 | OP ---
PATIENT NAME: YULISSA MCNAIR MEDICAL RECORD: [id number] :57 LOCATION:D.M2 D.2111 ADMISSION DATE:03/17/17 SURGEON: FLETCHER WELSH MD DATE OF OPERATION: 03/18/2017 PROCEDURE: Left heart catheterization, selective coronary angiography, right femoral approach. CATHETERS: A 5-Vietnamese sheath, 5/4 left and right Sofía pigtail catheter. The procedure was well tolerated and proceeded immediately to stenting the right coronary. FINDINGS: Left ventriculography was not performed. LV end-diastolic pressure was normal at 10. AORTIC ROOT INJECTION: This shows 2 separate bypass graft to ostia with no significant aortic insufficiency. CORONARY ANATOMY: LEFT MAIN: Left main is free of disease. LAD: Has severe diffuse stenosis; however, this is seen filling late via the SINGH to LAD. CIRCUMFLEX: Circumflex is severely diffusely stenosed proximally. RIGHT CORONARY ARTERY: Right dominant system, this shows an 80% stenosis before the takeoff of the PD and PL. BYPASS GRAFTS: 1. SINGH to LAD widely patent throughout its course without evidence of post-anastomotic stenosis. 2. Saphenous vein graft to OM system, widely patent throughout its course without evidence of post-anastomotic stenosis. 3. Saphenous vein graft to [place] circ, saphenous vein graft no significant stenosis. IMPRESSION: Planned intervention to the [place] right coronary momentarily. DESCRIPTION OF PROCEDURE: A 5-Vietnamese sheath was exchanged for a 6-Vietnamese sheath. A hockey stick guiding catheter provided excellent guide catheter support followed by 300cm Whisper wire was placed across the totally occluded right coronary down this portion of vessel. The stent deployed with 3.5 x 15 Integrity nondrug-eluting stent up to 14 atmospheres for 45 seconds. Final injection shows excellent resolution of 80% stenosis and no significant residual. TANYA flow was 3 throughout the procedure. Integrilin and heparin were used during the case. Sheath was closed with ExoSeal device. TRANSINT:[id number] Voice Confirmation ID: [id number] DOCUMENT ID: [id number] OPERATIVE REPORT [id number] YULISSA MCNAIR GREGORY A MD at 1330 CC: [id number] DICTATION DATE: 03/18/17 1611 TRIBUNAL MEMBER: 03/18/17 1749 DIS IN 03/22/17 [facility] [address] [place] [address]
== END 2017-03-22 11:40 | disposition home or self-care (01) | DRG 249 ==
LOC: D.M2 17:00
PROVIDERS: Internal Medicine; Internal Medicine Interventional Cardiology; Internal Medicine Nephrology; ADMIT Internal Medicine Nephrology
PROC: B2121ZZ Fluoroscopy of Single Coronary Artery Bypass Graft using Low Osmolar Contrast (ICD-10-PCS; 2017-03-18)
PROC: B2111ZZ Fluoroscopy of Multiple Coronary Arteries using Low Osmolar Contrast (ICD-10-PCS; 2017-03-18)
PROC: 02703DZ Dilation of Coronary Artery, One Artery with Intraluminal Device, Percutaneous Approach (ICD-10-PCS; principal; 2017-03-18 09:30)
PROC: 4A023N7 Measurement of Cardiac Sampling and Pressure, Left Heart, Percutaneous Approach (ICD-10-PCS; 2017-03-18 09:30)
DX: I25.10 Atherosclerotic heart disease of native coronary artery without angina pectoris (principal); I13.0 Hypertensive heart and chronic kidney disease with heart failure and stage 1 through stage 4 chronic kidney disease, or unspecified chronic kidney disease; N18.4 Chronic kidney disease, stage 4 (severe); E87.6 Hypokalemia; I50.9 Heart failure, unspecified; K21.9 Gastro-esophageal reflux disease without esophagitis; E11.9 Type 2 diabetes mellitus without complications; Z95.1 Presence of aortocoronary bypass graft; Z86.73 Personal history of transient ischemic attack (TIA), and cerebral infarction without residual deficits